=== PATIENT | male | born 1930 | race Caucasian/White ===

== ENCOUNTER → 2018-11-17 | Outpatient (CLI) | payer OTHER | LOC: HYPER 11-10 09:23 → EDBD 06:39 → HYPER 10:02 | DX: S61.511A Laceration without foreign body of right wrist, initial encounter (principal); S61.200A Unspecified open wound of right index finger without damage to nail, initial encounter; S50.811A Abrasion of right forearm, initial encounter; S61.203A Unspecified open wound of left middle finger without damage to nail, initial encounter; S60.511A Abrasion of right hand, initial encounter; I71.2 Thoracic aortic aneurysm, without rupture; I71.4 Abdominal aortic aneurysm, without rupture; K44.9 Diaphragmatic hernia without obstruction or gangrene; I10 Essential (primary) hypertension; H91.93 Unspecified hearing loss, bilateral; E78.00 Pure hypercholesterolemia, unspecified; G47.30 Sleep apnea, unspecified; M19.90 Unspecified osteoarthritis, unspecified site; K21.9 Gastro-esophageal reflux disease without esophagitis; E78.5 Hyperlipidemia, unspecified; M81.0 Age-related osteoporosis without current pathological fracture; R05 Cough; G30.9 Alzheimer's disease, unspecified; F32.9 Major depressive disorder, single episode, unspecified; F02.80 Dementia in other diseases classified elsewhere, unspecified severity, without behavioral disturbance, psychotic disturbance, mood disturbance, and anxiety; Z87.891 Personal history of nicotine dependence; Z85.46 Personal history of malignant neoplasm of prostate; Z79.82 Long term (current) use of aspirin; W19.XXXA Unspecified fall, initial encounter; Y93.89 Activity, other specified; Y92.89 Other specified places as the place of occurrence of the external cause; Y99.8 Other external cause status ==

== ENCOUNTER → 2018-12-01 | Outpatient (CLI) | payer OTHER | LOC: HYPER 06:16 | DX: S61.200D Unspecified open wound of right index finger without damage to nail, subsequent encounter (principal); S50.811D Abrasion of right forearm, subsequent encounter; S61.511D Laceration without foreign body of right wrist, subsequent encounter; S60.511D Abrasion of right hand, subsequent encounter; S61.201D Unspecified open wound of left index finger without damage to nail, subsequent encounter; E78.00 Pure hypercholesterolemia, unspecified; E78.5 Hyperlipidemia, unspecified; E03.9 Hypothyroidism, unspecified; G47.30 Sleep apnea, unspecified; G30.9 Alzheimer's disease, unspecified; H91.93 Unspecified hearing loss, bilateral; I71.6 Thoracoabdominal aortic aneurysm, without rupture; I10 Essential (primary) hypertension; K21.9 Gastro-esophageal reflux disease without esophagitis; K44.9 Diaphragmatic hernia without obstruction or gangrene; M81.0 Age-related osteoporosis without current pathological fracture; M19.90 Unspecified osteoarthritis, unspecified site; F02.80 Dementia in other diseases classified elsewhere, unspecified severity, without behavioral disturbance, psychotic disturbance, mood disturbance, and anxiety; F32.9 Major depressive disorder, single episode, unspecified; Z87.891 Personal history of nicotine dependence; Z79.82 Long term (current) use of aspirin; Z85.46 Personal history of malignant neoplasm of prostate; Z85.828 Personal history of other malignant neoplasm of skin; W19.XXXD Unspecified fall, subsequent encounter ==

== ENCOUNTER → 2018-12-22 | Outpatient (CLI) | payer OTHER | LOC: HYPER 06:38 | DX: S61.501D Unspecified open wound of right wrist, subsequent encounter (principal); S50.811D Abrasion of right forearm, subsequent encounter; E78.00 Pure hypercholesterolemia, unspecified; E78.5 Hyperlipidemia, unspecified; E03.9 Hypothyroidism, unspecified; G47.30 Sleep apnea, unspecified; G30.9 Alzheimer's disease, unspecified; H91.93 Unspecified hearing loss, bilateral; I10 Essential (primary) hypertension; I71.2 Thoracic aortic aneurysm, without rupture; I71.4 Abdominal aortic aneurysm, without rupture; K21.9 Gastro-esophageal reflux disease without esophagitis; K44.9 Diaphragmatic hernia without obstruction or gangrene; M81.0 Age-related osteoporosis without current pathological fracture; M19.90 Unspecified osteoarthritis, unspecified site; F32.9 Major depressive disorder, single episode, unspecified; F02.80 Dementia in other diseases classified elsewhere, unspecified severity, without behavioral disturbance, psychotic disturbance, mood disturbance, and anxiety; Z85.46 Personal history of malignant neoplasm of prostate; Z85.828 Personal history of other malignant neoplasm of skin; Z79.82 Long term (current) use of aspirin; Z87.891 Personal history of nicotine dependence; W19.XXXD Unspecified fall, subsequent encounter ==